=== PATIENT | male | born 1960 | race Caucasian/White ===

== ENCOUNTER 2020-06-11 15:02 | Outpatient (CLI) | payer OTHER | END 2020-06-11 15:03 | disposition home or self-care (01) | LOC: COV 15:02 | PROVIDERS: ATTEND Surgery | DX: Z01.812 Encounter for preprocedural laboratory examination (principal); K40.90 Unilateral inguinal hernia, without obstruction or gangrene, not specified as recurrent; Z20.828 Contact with and (suspected) exposure to other viral communicable diseases ==

== ENCOUNTER 2020-06-17 07:15 | Day surgery (SDC) | payer OTHER ==
[~2020-06-17 07:15] MED LIST: CEFAZOLIN SODIUM IN 0.9 % NACL 2 GM/100 ML BAG IV ONE
[2020-06-17] MEDS ORDERED: PROPOFOL 200 MG/20 ML VIAL IVP ONE (07:16)
[2020-06-17] MEDS ORDERED: GLYCOPYRROLATE 1 MG/5 ML VIAL IVP ONE (07:16)
[2020-06-17] MEDS ORDERED: KETOROLAC 30 MG/ML VIAL IVP ONE (07:16)
[2020-06-17] MEDS ORDERED: MIDAZOLAM 2 MG/2 ML VIAL IVP ONE (07:16)
[2020-06-17] MEDS ORDERED: fentaNYL 100 MCG/2 ML VIAL IVP ONE (07:16)
[2020-06-17] MEDS ORDERED: ACETAMINOPHEN 1,000 MG/100 ML 100 ML IV ONE (07:16)
[2020-06-17] MEDS ORDERED: LACTATED RINGERS 1,000 ML IV ONE (07:37)
--- NOTE | 2020-06-17 08:02 | ANESTHESIA ---
Pre-Anesthesia VS, & Labs - Diagnosis right inguinal hernia - Procedure right inguinal hernia repair with mesh Vital Signs: Temp Pulse Resp BP Pulse Ox 36.1 C L 64 14 124/77 100 06/17/20 07:20 06/17/20 07:20 06/17/20 07:20 06/17/20 07:20 06/17/20 07:20 Height: 6 ft Weight (kg): 87.1 kg Body Mass Index: 26.0 BMI Classification: Overweight - NPO >8 hours Home Medications and Allergies Home Medications: Ambulatory Orders Zinc Gluconate [Zinc] 30 mg PO DAILY 06/06/20 Zinc Gluconate [Zinc] 30 mg PO DAILY 06/06/20 Allergies/Adverse Reactions: Allergies Allergy/AdvReac Type Severity Reaction Status Date / Time No Known Drug Allergies Allergy Verified 06/06/20 13:18 Anes History & Medical History - Anesthetic History Anesthesia Complications: reports: No previous complications - Medical History Cardiovascular: reports: None Pulmonary: reports: None Gastrointestinal: reports: None Urinary: reports: Kidney stones (history of.) Neuro: reports: None Musculoskeletal: reports: None Endocrine/Autoimmune: reports: None Blood Disorders: reports: None Skin: reports: None Smoking Status: Never smoker Psychosocial: reports: Alcohol (weekends-6 drinks) History of Cancer?: No - Surgical History General: Colonoscopy, Other (left inguinal hernia repairs x2) Exam General: Alert, Oriented x3, Cooperative, No acute distress Dental: WNL Mouth Openin Fingerbreadth Neck Mobility: Normal Mallampati classification: II Thyromental Distance: 4-6 cm Mental/Cognitive Status: Alert/Oriented X3, Normal for patient Plan Anesthesia Type: General, MAC Consent for Procedure(s) Verified and Reviewed: Yes Code Status: Attempt Resuscitation ASA classification: 1-Healthy patient Is this case an emergency?: No
[2020-06-17] MEDS: LIDOCAINE 1% 50 ML MDV ONE ×2 (08:54→09:56)
[2020-06-17] MEDS: BUPIVACAINE 0.25% PF 30 ML VIAL ONE ×2 (08:55→09:56)
[2020-06-17] MEDS ORDERED: LACTATED RINGERS 100 ML IV ONE (10:08)
[2020-06-17] MEDS ORDERED: oxyCODONE 5 MG TABLET PO PRN (10:11)
--- NOTE | 2020-06-17 10:15 | OPERATIVE REPORT ---
Operative Report - General Procedure Date: 06/17/20 Planned Procedure: open right inguinal hernia repair with mesh Pre-Op Diagnosis: right inguinal hernia Procedure Performed: open right inguinal hernia repair with mesh Post Op Diagnosis: same - Procedure Note Primary Surgeon: alex mendiola Anesthesia Technique: Local, MAC Estimated Blood Loss (mL): 0 Drain/Tube Type: Other (none) Findings: direct Complications: none
[2020-06-17 10:35] VITALS: BP 103/70
--- NOTE | 2020-06-17 11:47 | OPERATIVE REPORT ---
DATE OF SERVICE: 06/17/2020 Physician: Arcenio Moore MD PREOPERATIVE DIAGNOSIS: Right inguinal hernia. POSTOPERATIVE DIAGNOSIS: Right inguinal hernia, large, direct. PROCEDURE PERFORMED: Open right inguinal hernia repair with mesh, Gilbert. SURGEON: Arcenio Moore MD GRAILS WEB APPLICATION DEVELOPER: None. ANESTHESIA: Monitored anesthesia care, IV sedation, local anesthesia. COMPLICATIONS: None. SPECIMEN: Preperitoneal adipose tissue removed; however, not sent for pathology. ESTIMATED BLOOD LOSS: None. COMPLICATIONS: None. FINDINGS: Ilioinguinal nerve ran or transversed lateral. It was mobilized to allow for repair. All 3 nerves were identified, carefully protected and preserved. Patient had a large direct inguinal hernia. There was no indirect. INDICATIONS FOR PROCEDURE: The patient is a healthy, active, 60-year-old gentleman with history of laparoscopic followed by open repair of a recurrent left inguinal hernia. He has developed a symptomatic right inguinal hernia. He presents for open repair. Risks discussed, alternatives discussed, all questions answered and consent obtained. DETAILS OF PROCEDURE: The patient was properly identified, brought to the operating room and placed in supine position. He voided prior to surgery. Monitored anesthesia care was given, as well as IV sedation. He was prepped and draped in a sterile fashion, and given preoperative antibiotics. Local anesthetic was given throughout the procedure. A 5 cm incision was made in the direction of Mirela lines. Dissection proceeded with cutting current. The superficial epigastric vein was very tiny, and cauterized and divided. Dissection proceeded down to the aponeurosis. This was opened in the direction of its fibers, extending to the external ring. Patient had a large ilioinguinal nerve, which transversed lateral. It was sharply mobilized to allow bringing the cord structures up and repairing the direct inguinal hernia. He had a large direct defect, which was mobilized away from surrounding tissue. The floor was then repaired with a 2-0 silk pursestring suture, with care not to entrap to the genitofemoral nerve. He had the hernia for quite some time. He had mildly hypertrophied cremasteric musculature. There was no indirect hernia sac. Preperitoneal adipose tissue measuring approximately 1 x 6 cm was mobilized away from the cord structures, clamped, divided, and tied with 2-0 silk. Polypropylene mesh was then cut to size and with tails, and placed in Gilbert fashion. The mesh was secured to the pubic tubercle area, along the shelving border of Poupart ligament, medially along the musculature or fascia of the internal oblique with multiple interrupted 0 Ethibond sutures. The medial tail of the mesh was secured to the shelving border of Poupart ligament with 2 interrupted 0 Ethibond sutures, recreating an internal ring of appropriate size. During the repair, the ilioinguinal nerve was reflected back with the cord structures. The iliohypogastric nerve lay medial to the mesh. The aponeurosis was closed with a running 2-0 Vicryl suture. Daniel's was closed with interrupted 3-0 Vicryl suture. Skin was closed with a running 4-0 Monocryl subcuticular suture. Dressing was applied. He tolerated the procedure very well. TD: 06/17/2020 10:45 BOOGIE
--- NOTE | 2020-06-17 13:32 | ANESTHESIA POST OP EVALUATION ---
Anesthesia Post Eval - Post Anesthesia Eval Vitals: Last Vital Signs Temp 36.4 C L 06/17/20 10:34 Pulse 61 06/17/20 10:34 Resp 18 06/17/20 10:34 BP 103/70 06/17/20 10:34 Pulse Ox 100 06/17/20 10:34 CV Function Including HR & BP: positive: Stable Pain Control: positive: Satisfactory Nausea & Vomiting: positive: Negative Mental Status: positive: Baseline Respiratory Status: Airway Patent Hydration Status: Satisfactory Anesthesia Complications: positive: None
== END 2020-06-17 07:16 | disposition home or self-care (01) ==
LOC: SDS 07:15
PROVIDERS: ATTEND Surgery
DX: K40.90 Unilateral inguinal hernia, without obstruction or gangrene, not specified as recurrent (principal); E66.3 Overweight; Z68.26 Body mass index [BMI] 26.0-26.9, adult
CPT/HCPCS: 49505; C1781; J0131; J0690; J7120